=== PATIENT | male | born 1990 | race Caucasian/White ===

== ENCOUNTER 2025-03-11 11:34 | Inpatient (IN) ==
--- NOTE | 2025-03-11 11:49 | Emergency Department Note ---
Impression & Plan Cellulitis, Wound infection, Laceration of right lower leg ED Provider Note CHIEF COMPLAINT: Leg injury, leg swelling, redness, infected laceration repair HISTORY OF PRESENTING ILLNESS: The patient is a 34-year-old male who presents to the emergency department due to a right lower leg infection. The patient was seen 5 days ago at [facility] due to an injury to the right lower leg that required suture repair. The wound is approximately 10 cm on the right abdullahi. He was started on Keflex upon discharge from the ER. He states that 3 days ago he noticed some surrounding redness in the area and was evaluated by his primary care provider who added Bactrim. He has been taking the Keflex and Bactrim as prescribed for the last 3 days and has noticed increased redness, purulent drainage, and felt as if he had a fever last night and chills. He did take his temperature which was 99.8. He describes the area as very painful and that he has noticed swelling. He denies nausea or vomiting, chest pain, shortness of breath, abdominal pain. REVIEW OF SYSTEMS: See HPI for pertinent positives and pertinent negatives. ALLERGIES: NKDA MEDICATIONS: See below PAST MEDICAL HISTORY: See below PHYSICAL EXAM: VITALS: Vitals are noted on the nurse's note and reviewed by myself. Vital signs stable. GENERAL: 34-year-old male, in no acute distress, nondiaphoretic, well-developed well-nourished. SKIN: Capillary refill less than 2 seconds. HEENT: Normocephalic. PERRLA. EOMI. Nares patent. Mucous membranes moist. Neck is supple without nuchal rigidity. HEART: Regular rate and rhythm without murmurs gallops or rubs. LUNGS: CTA BL without wheezes, rales or rhonchi. No retractions or accessory muscle use. MUSCULOSKELETAL: There is a 10 cm laceration repair noted on the right abdullahi. There is surrounding erythema from the midfoot to up below the knee. There is purulent drainage from the wound. Area is warm and tender to touch. Patient has full range of motion of the lower extremity. 2 + dorsal pedis pulse. NEURO: Patient was alert and oriented. No focal neurological deficits. DIFFERENTIAL DIAGNOSIS: Cellulitis, erysipelas, abscess, sepsis, wound dehiscence, among others. ED COURSE AND MEDICAL DECISION MAKING: HISTORY FROM INDEPENDENT HISTORIAN: The patient himself. MEDICATIONS GIVEN: Tylenol 1000 mg IV, vancomycin 2750 mg IV INTERPRETATION OF LABS: I interpreted the labs with full lab results as below in the lab section of this note. Pertinent lab results discussed in the MDM section below. INTERPRETATION OF IMAGING: No images were ordered. ESCALATION OF CARE CONSIDERED: Escalation of care was considered with the patient's presentation with an infected wound that is becoming progressively worse on 2 oral antibiotics. Lab work does not show a systemic infection and the patient was started on IV antibiotics. I discussed with the patient admission for IV antibiotics and observation for the next 24 to 48 hours in which she agrees. The patient was admitted to medicine. [facility] Presented the patient to the provider and that I feel it is of his best interest to receive IV antibiotics and observe the wound for the next couple of days. We discussed that he does not appear to have systemic infection at this time but has failed outpatient treatment. She was wondering if I believed that he had osteomyelitis and which I do not have concerns for at this time. She did discuss potentially ordering images in the inpatient setting in which I agreed to as well. The patient was evaluated and admitted to medicine. MDM SUMMARY: I evaluated the 34-year-old male who presents to the emergency department due to an infected wound on his right lower leg. See HPI and physical exam above. IV access was established and labs were obtained. Tylenol was given for symptom management. Due to the patient's laceration repair being infected and failing two oral antibiotic he was given an IV dose of vancomycin here. A wound culture was obtained and sent to lab for testing. I did discuss with the pharmacist using Dalbavancin IV and sending the patient home and to return for recheck in 48 to 72 hours. After discussing this with the patient he ultimately called his insurance company who stated that they would not cover the IV medication. He politely declines it at this time. I did discuss with him that I feel it is of his best interest to be admitted for observation and IV antibiotics for a day or so. He does agree to this plan. [facility] be seen in detail above. The patient was admitted in stable condition. DIAGNOSIS: Cellulitis, wound infection, laceration of right lower leg The chart was completed utilizing FlowJob voice recognition software. Grammatical errors, random word insertions, pronoun errors, and incomplete sentences are an occasional consequence of this system due to software limitations, ambient noise, and hardware issues. Any formal questions or concerns about the content, text, or information contained within the body of this dictation should be directly addressed to the provider for clarification. Past Med/Surg History Problem List (Updated 03/11/25 @ 19:05 by Nunu Robles PA-C) Wound infection (Acute) Cellulitis (Acute) Laceration of right lower leg (Acute) Cellulitis Medical History Spinal stenosis Spinal stenosis Lumbar spinal stenosis (03/25/14) Internal derangement of knee Knee MCL sprain Knee LCL sprain Patellar dislocation Surgical History Hx of lumbar discectomy Family History Other Deep vein thrombosis Hypertension Social History Smoking Status: Never smoker Hx Alcohol Use: No Hx Substance Use: No Preferred Language: Macedonian Communication Ability: Effective Assistant Facility Manager Required: No Beliefs That Will Affect Care: None Current Living Situation: Spouse Feels Safe at Home: Yes Safety Concerns: Feels Safe At This Time Assistive Devices: None Allergies Allergies Allergy/AdvReac Type Severity Reaction Status Date / Time No Known Allergies Allergy Unknown Unverified 03/11/25 15:26 Home Meds Home Medications Medication Instructions Recorded Confirmed sulfamethoxazole 800 1 tab PO BID 03/11/25 03/11/25 mg-trimethoprim 160 mg tablet Results & Data (ED) Vital Signs Vital Signs - 24 hr 03/11/25 11:41 03/11/25 15:04 Temperature 36.3 C L Temperature Source Temporal Artery Scan Pulse Rate 81 Pulse Rate [Apical] 74 Respiratory Rate 18 18 Blood Pressure 129/69 Blood Pressure [Left Arm] 128/60 Blood Pressure Mean 89 Blood Pressure Mean [Left Arm] 82 Pulse Oximetry 95 100 Oxygen Delivery Method Room Air Room Air Sepsis New/Unexplained Change in Mental Status No Sepsis Action Taken by Nursing No Action Required Laboratory Data 03/11/25 12:17 03/11/25 12:17 Lab Results 07/24/25 Range/Units 12:17 WBC 8.82 (4.8-10.8) K/ul RBC 4.85 (4.70-6.10) M/uL Hgb 13.4 L (14.0-18.0) g/dl Hct 40.9 L (42.0-52.0) % MCV 84.3 (80.0-100.0) fL MCH 27.6 (25.0-34.0) pg MCHC 32.8 (32.0-36.0) g/dL RDW Std Deviation 41.1 (36.4-46.3) fL RDW Coeff of Vaibhav 13.2 (11.5-14.5) % Plt Count 256 (130-400) K/uL MPV 10.1 (9.4-12.4) fL Immature Gran % (Auto) 0.2 % Neut % (Auto) 73.5 % Lymph % (Auto) 13.4 % [place] % (Auto) 8.7 % Eos % (Auto) 3.7 % Baso % (Auto) 0.5 % Neut # (Auto) 6.48 (1.40-6.50) K/uL Lymph # (Auto) 1.18 L (1.20-3.40) K/uL [place] # (Auto) 0.77 H (0.11-0.59) K/uL Eos # (Auto) 0.33 (0.00-0.50) K/uL Baso # (Auto) 0.04 (0.00-0.20) K/uL Immature Gran # (Auto) 0.02 (0.01-0.20) K/uL Sodium 137 (136-145) mmol/L Potassium 4.0 (3.5-5.1) mmol/L Chloride 105 (98-107) mmol/L Carbon Dioxide 26 (21-32) mmol/L Anion Gap 6 (3-11) BUN 12 (6-23) mg/dl Creatinine 0.82 (0.6-1.4) mg/dl Est Cr Clr Drug Dosing 200.8 ml/min eGFR 118.21 BUN/Creatinine Ratio 14.6 (10-20) Glucose 106 H (70-99(Fasting)) mg/dl Lactate 1.2 (0.4-2.0) mmol/L Calcium 8.9 (8.6-10.3) mg/dl Total Bilirubin 1.0 (0.2-1.0) mg/dl AST 20 (13-39) U/L ALT 17 (7-52) U/L Alkaline Phosphatase 66 (34-104) U/L Total Protein 6.9 (6.0-8.3) gm/dl Albumin 3.6 (3.4-5.0) gm/dl Globulin 3.3 (2.5-4.0) gm/dl Albumin/Globulin Ratio 1.1 (0.9-2) Procalcitonin 0.08 (0-0.5) ng/ml Administered Medications Discontinued Medications Cefepime HCl (Cefepime 2,000 Mg/20 Ml Iv Push) Confirm Administered Dose 2,000 mg IV .[employer]-MED ONE Stop: 03/11/25 17:54 Last Admin: 03/11/25 17:58 Dose: Not Given Documented By: MONIQUE Acetaminophen (Ofirmev) 1,000 mg in 100 mls @ 400 mls/hr IV NOW STA Stop: 03/11/25 12:33 Last Infusion: 03/11/25 13:06 Dose: Infused Documented By: Admin: 03/11/25 12:34 Dose: 400 mls/hr Documented By: TOMA Vancomycin HCl 2,750 mg/ (Sodium Chloride) 555 mls @ 200 mls/hr IV NOW ONE Stop: 03/11/25 15:08 Last Infusion: 03/11/25 18:03 Dose: Infused Documented By: Infusion: 03/11/25 14:37 Dose: 0 mls/hr Documented By: Admin: 03/11/25 13:10 Dose: 200 mls/hr Documented By: RAISA Imaging Data Radiologist's Impression: Lower Extremity CT 03/11/25 15:52 Clinical history: Rule out abscess Technique: Axial computed tomography images were obtained of the right lower leg without intravenous contrast. Sagittal and coronal reconstructions were obtained Findings: No fracture is identified. There is mild lateral tilting and lateral subluxation of the patella. There is mild to moderate severity right knee osteoarthritis. There is a small sclerotic lesion in the body of the calcaneus, likely a benign bone island. No other focal osseous lesion is evident. There is no definite sign of osteomyelitis. There is a small dorsal calcaneal spur The visualized musculature appears unremarkable. There is mild diffuse subcutaneous edema. There are multiple small calcifications in the anterior subcutaneous fat. No foreign body is evident Impression: 1. Subcutaneous edema that could be due to cellulitis 2. No definite abscess or osteomyelitis 3. Right knee osteoarthritis 4. Lateral tilting and lateral subluxation of the patella, which may be due to patellar tracking abnormality 5. Small calcaneal spur Electronically signed by Asael Conway 03-11-2025 4:44 PM Venous Doppler Study 03/11/25 15:52 Technique: Venous ultrasound evaluation was performed utilizing grayscale, color Doppler and wave form evaluation. Images were also obtained with and without compression Findings: The right common femoral, superficial femoral, popliteal, and visualized calf veins demonstrate normal anechoic lumens with full compressibility. Normal flow is seen on color Doppler images. Expected waveforms were produced with augmentation maneuvers There is right inguinal adenopathy, the largest a 5.1 x 3 x 1 cm lymph node with a fatty hilum. Impression: 1. No evidence of right leg deep venous thrombosis 2. Right inguinal adenopathy, nonspecific in nature ACT 112: Positive. There are findings on this exam that require communication between the performing entity and the patient following Patient Test Result Information Act ([place] ACT 112) guidelines. Electronically signed by Asael Conway 03-11-2025 4:39 PM Discharge Plan Visit Data Chief Complaint: Laceration/Cut (Non-Suture) Stated Complaint: LEG INJURY, LEG SWELLING, REDNESS, LACERATION ED Provider: [facility] ED Midlevel Provider: Nunu Robles Discharge Problem: Cellulitis, Wound infection, Laceration of right lower leg Patient Disposition: Admitted As Inpatient Condition: Fair Discharge Instructions Interventions: ED Discharge Assessment Last Done: 03/11/25 18:03 Discharge Problem: Cellulitis Qualifiers: Site of cellulitis: extremity Site of cellulitis of extremity: lower extremity Laterality: right Qualified Code(s): L03.115 - Cellulitis of right lower limb Laceration of right lower leg Qualifiers: Encounter type: initial encounter Qualified Code(s): S81.811A - Laceration without foreign body, right lower leg, initial encounter
[2025-03-11] MEDS ORDERED: VANCOMYCIN CONSULT ACTIVE PRN (12:19)
[2025-03-11 12:31] LABS: Hematocrit (blood only) 40.9 % (42.0-52.0); Hemoglobin 13.4 g/dl (14.0-18.0); Immature Granulocytes # (auto) 0.02 K/uL (0.01-0.20); Immature Granulocytes % (auto) 0.2 %; Mean Corpuscular Hemoglobin 27.6 pg (25.0-34.0); Mean Corpuscular Volume 84.3 fL (80.0-100.0); Platelet Count 256 K/uL (130-400); RDW Standard Deviation 41.1 fL (36.4-46.3); Red Blood Count 4.85 M/uL (4.70-6.10); White Blood Count 8.82 K/ul (4.8-10.8)
[2025-03-11] MEDS: ACETAMINOPHEN 1,000 MG/100 ML VIAL IV STA (12:34)
[2025-03-11 12:48] LABS: Anion Gap 6.0 (3-11); Bilirubin,Total 1.0 mg/dl (0.2-1.0); Calcium 8.9 mg/dl (8.6-10.3); Carbon Dioxide 26.0 mmol/L (21-32); Chloride 105.0 mmol/L (98-107); Potassium 4.0 mmol/L (3.5-5.1); Sodium 137.0 mmol/L (136-145)
[2025-03-11 12:54] LABS: Alanine Aminotransferase 17.0 U/L (7-52); Albumin Globulin Ratio 1.1 (0.9-2); Alkaline Phosphatase 66.0 U/L (34-104); Blood Urea Nitrogen 12.0 mg/dl (6-23); Creatinine Clr Calc Pharmacy 200.8 ml/min; Globulin 3.3 gm/dl (2.5-4.0); Glucose 106.0 mg/dl (70-99(Fasting)); Total Protein 6.9 gm/dl (6.0-8.3)
[2025-03-11] MEDS: VANCOMYCIN HCL 2,750 MG in SODIUM CHLORIDE 0.9% 500 ML IV ONE (13:10)
--- NOTE | 2025-03-11 15:32 | History & Physical Report ---
Date of Service March 11, 2025 Assessment & Plan (1) Cellulitis: (2) Laceration of right lower leg: Plan 34 year old male with PMH significant for history of lumbar spine surgery who presented to the ED on 03/11/2025 with an infected leg laceration and is admitted for cellulitis. Cellulitis Laceration of right lower leg Sustained laceration of right lower leg 5 days ago Failed outpatient therapy consisting of keflex x2 days and bactrim x3 days No leukocytosis or fevers Wound culture pending Obtain CT without contrast to rule out abscess Obtain venous doppler to rule out DVT Continue IV vancomycin and add IV cefepime 1L NSS Ortho consult for possible I&D DVT Prophylaxis: SQ Heparin Code Status: FULL CODE - As per discussion at bedside with the patient. PCP: Luna Ames MD Disposition: admit to med surg Patient seen in collaboration with Dr Huang. Please see addendum. I spent a total of 55 minutes coordinating, documenting and providing care for this patient excluding time spent in the performance of separately billed services or time spent by another provider/QHP. Admission and Anticipated Discharge Date Admission Date: 03/11/2025 History of Present Illness Chief Complaint: leg infection Primary Care Provider: Luna Ames MD 34 year old male with PMH significant for history of lumbar spine surgery who presented to the ED on 03/11/2025 with an infected leg laceration. Last Saturday, he had a tractor accident and sustained a deep cut on his right abdullahi. He was seen at [facility] and got ten stitches inside and twenty outside. He received a tetanus shot and was prescribed keflex. He developed swelling, redness, and warmth and presented to his PCP on Saturday who prescribed bactrim. He has been taking bactrim twice a day with no improvement and notes that the redness and swelling has been getting worse. He called his PCP today who advised that he come to the ED. He reports a low grade fever of 99.5 last night but denies chills, chest pain, SOB, abdominal pain, N/V. Notes some diarrhea since starting the bactrim. He has been able to walk but notes discomfort when walking. He has been elevating his leg after work each night. He has been applying neosporin and a dressing for wound care. Allergies Allergy/AdvReac Type Severity Reaction Status Date / Time No Known Allergies Allergy Unknown Unverified 03/11/25 15:26 Home Medications Medication Instructions Recorded Confirmed Type sulfamethoxazole 800 1 tab PO BID 03/11/25 03/11/25 History mg-trimethoprim 160 mg tablet Past Med/Surg History Problem List (Updated 03/11/25 @ 15:59 by JENNY Larose) Laceration of right lower leg Cellulitis Medical History (Updated 03/11/25 @ 15:59 by JENNY Larose) Spinal stenosis Spinal stenosis Lumbar spinal stenosis (03/25/14) Internal derangement of knee Knee MCL sprain Knee LCL sprain Patellar dislocation Surgical History (Updated 03/11/25 @ 15:28 by JENNY Larose) Hx of lumbar discectomy Family History (Updated 03/11/25 @ 16:02 by JENNY Larose) Other Deep vein thrombosis Hypertension Social History (Updated 03/11/25 @ 16:03 by JENNY Larose) Smoking Status: Never smoker Hx Alcohol Use: No Hx Substance Use: No Preferred Language: Niuean Feels Safe at Home: Yes Assistive Devices: None Review of Systems Review of Systems: All systems reviewed & are unremarkable except as noted in HPI & below Physical Exam Physical Exam: General/Psych: WD/WN, sitting up in bed, NAD, conversing easily, euthymic affect Head: normocephalic, atraumatic Eyes: normal inspection, PERRL, conjunctivae pink ENT: external ear and nose normal, oropharynx normal Neck: normal visual inspection, trachea midline Respiratory: normal respiratory effort, lungs clear to auscultation, no wheeze/rales/rhonchi, no accessory muscle use Cardiovascular: regular rate and rhythm, no murmur/rub/gallop, no JVD Extremities: no cyanosis or clubbing, normal peripheral pulses, right lower leg warm and edematous without fluctuance Abdomen/GI: normal bowel sounds, soft, nontender, no hepatosplenomegaly Neurologic/MSK: A+Ox3, motor strength 5/5, moves all extremities Skin: no rashes, normal color, warm and dry, right abdullahi laceration with sutures and scant amount of serous drainage with surrounding erythema Results & Data Results & Data Vital Signs (Past 12 Hours) Vital Signs Temp Pulse Pulse Resp BP BP Pulse Ox 03/11/25 15:04 74 18 128/60 100 03/11/25 11:41 36.3 C L 81 18 129/69 95 O2 Del Method 03/11/25 15:04 Room Air 03/11/25 11:41 Room Air Laboratory Results Short CBC 03/11/25 Range/Units 12:17 WBC 8.82 (4.8-10.8) K/ul Hgb 13.4 L (14.0-18.0) g/dl Hct 40.9 L (42.0-52.0) % Plt Count 256 (130-400) K/uL BMP 03/11/25 12:17 Sodium 137 Potassium 4.0 Chloride 105 Carbon Dioxide 26 BUN 12 Creatinine 0.82 Glucose 106 H Calcium 8.9 Liver Function 03/11/25 Range/Units 12:17 Total Bilirubin 1.0 (0.2-1.0) mg/dl AST 20 (13-39) U/L ALT 17 (7-52) U/L Alkaline Phosphatase 66 (34-104) U/L Albumin 3.6 (3.4-5.0) gm/dl I have independently reviewed and interpreted patient's admitting labs including CBC, CMP, lactate, procalcitonin Code Status & VTE Plan Code Status Full Code
--- NOTE | 2025-03-11 15:42 | Communication Note ---
Date of Service: March 11, 2025 Attending Addendum: Case reviewed with the advanced practitioner. I have personally performed a history and physical examination on the patient. I have reviewed the advanced practitioner's documentation on the date of service referenced in note, and I agree with, and take responsibility for the plan of care. please refer to her notes for full details patient seen and examined, records reviewed by myself as well on exam, patient seen resting in bed, sitting up worsening R lower leg pain since injury from getting on his tractor last Saturday, sutured at outside hospital, no improvement with Cephalexin and Bactrim states he has moderate R lower leg pain, worse with movement temp was 99.8 yesterday, no chills, nausea/vomiting no other symptoms VS noted and reviewed oriented x 3, not in distress, speaks in sentences with no effort nor accessory muscle use normal rate, regular rhythm, no murmurs clear breath sounds bilaterally non distended, soft, nontender R lower leg: (+) significant edema, sutured laceration- anterior abdullahi, wound well opposed, scant yellow drainage, surrounding significant erythema, moderate warmth and tenderness, extending beyond demarcation line small area of fluctuance above the wound L lower leg: essentially normal no neuro deficits all labs, imaging noted and reviewed ASSESSMENT AND PLAN> INFECTED RIGHT LOWER LEG SUTURED LACERATION, CELLULITIS r/o ABSCESS worsening R lower leg swelling, erythema, pain after laceration sutured 5 days ago, and taking Cephalexin, Bactrim wound culture: pending blood culture: pending CT R lower leg without contrast (patient on IV Vanco) IV Vanco + Cefe IV fluids General Surgery consult for evaluation of possible I&D as per patient, he has received Tetanus Vaccine when the wound was sutured 5 days ago other diagnoses and plan of care as per advanced practitioner's notes I spent a total of 35 minutes coordinating, documenting, and providing care for this patient, excluding time spent in the performance of separately billed services or time spent by another provider/QHP. Laron Huang MD
--- NOTE | 2025-03-11 16:40 | Ultrasound Report ---
Technique: Venous ultrasound evaluation was performed utilizing grayscale, color Doppler and wave form evaluation. Images were also obtained with and without compression Findings: The right common femoral, superficial femoral, popliteal, and visualized calf veins demonstrate normal anechoic lumens with full compressibility. Normal flow is seen on color Doppler images. Expected waveforms were produced with augmentation maneuvers There is right inguinal adenopathy, the largest a 5.1 x 3 x 1 cm lymph node with a fatty hilum. Impression: 1. No evidence of right leg deep venous thrombosis 2. Right inguinal adenopathy, nonspecific in nature ACT 112: Positive. There are findings on this exam that require communication between the performing entity and the patient following Patient Test Result Information Act ([place] ACT 112) guidelines. Electronically signed by Asael Conway 03-11-2025 4:39 PM
--- NOTE | 2025-03-11 16:45 | CT Scan Report ---
Clinical history: Rule out abscess Technique: Axial computed tomography images were obtained of the right lower leg without intravenous contrast. Sagittal and coronal reconstructions were obtained Findings: No fracture is identified. There is mild lateral tilting and lateral subluxation of the patella. There is mild to moderate severity right knee osteoarthritis. There is a small sclerotic lesion in the body of the calcaneus, likely a benign bone island. No other focal osseous lesion is evident. There is no definite sign of osteomyelitis. There is a small dorsal calcaneal spur The visualized musculature appears unremarkable. There is mild diffuse subcutaneous edema. There are multiple small calcifications in the anterior subcutaneous fat. No foreign body is evident Impression: 1. Subcutaneous edema that could be due to cellulitis 2. No definite abscess or osteomyelitis 3. Right knee osteoarthritis 4. Lateral tilting and lateral subluxation of the patella, which may be due to patellar tracking abnormality 5. Small calcaneal spur Electronically signed by Asael Conway 03-11-2025 4:44 PM
[2025-03-11] MEDS: CEFEPIME 2,000 MG/20 ML IV PUSH IV ONE (17:58)
[2025-03-11] MEDS ORDERED: ADVANCED PROBIOTIC 625 MG CAPSULE PO SCH (18:19)
[2025-03-11] MEDS ORDERED: ONDANSETRON INJ 2 MG/ML 2 ML VIAL IV PRN (18:19)
[2025-03-11] MEDS: SODIUM CHLORIDE 0.9% 1,000 ML IV SCH (19:32)
[2025-03-11] MEDS: CEFEPIME 2000MG 2,000 MG/20 ML SYR IV SCH (19:32)
[2025-03-11] MEDS: VANCOMYCIN HCL 1,750 MG in SODIUM CHLORIDE 0.9% 500 ML IV SCH (19:33)
[2025-03-11] MEDS: ADVANCED PROBIOTIC 625 MG CAPSULE PO SCH (19:33)
[2025-03-11] MEDS: HEPARIN SOD 5,000 UNIT/0.5 ML VIAL SQ SCH (20:49)
[2025-03-12] MEDS: ACETAMINOPHEN 325 MG TAB PO PRN (05:32)
[2025-03-12 07:21] LABS: Hematocrit (blood only) 37.3 % (42.0-52.0); Hemoglobin 12.2 g/dl (14.0-18.0); Mean Corpuscular Hemoglobin 27.6 pg (25.0-34.0); Mean Corpuscular Volume 84.4 fL (80.0-100.0); Platelet Count 239 K/uL (130-400); RDW Standard Deviation 41.3 fL (36.4-46.3); Red Blood Count 4.42 M/uL (4.70-6.10); White Blood Count 7.85 K/ul (4.8-10.8)
[2025-03-12 07:42] LABS: Anion Gap 6.0 (3-11); Blood Urea Nitrogen 14.0 mg/dl (6-23); Calcium 8.3 mg/dl (8.6-10.3); Carbon Dioxide 24.0 mmol/L (21-32); Chloride 109.0 mmol/L (98-107); Creatinine Clr Calc Pharmacy 215.0 ml/min; Glucose 103.0 mg/dl (70-99(Fasting)); Potassium 4.4 mmol/L (3.5-5.1); Sodium 139.0 mmol/L (136-145)
[2025-03-12 08:55] LABS: Hemoglobin A1C 5.3 % (4.5-5.6)
--- NOTE | 2025-03-12 09:23 | Pharmacy Report ---
Pharmacy PK ABX Note - Date of Service March 12, 2025 - Assessment and Plan Assessment 34 year old M receiving empiric vancomycin and cefepime for treatment of RLE cellulitis. Patient sustained laceration to right lower leg ~5 days ago. Had been receiving 2 days of cephalexin and 3 days of Bactrim prior to admission. CT shows subcutaneous edema that could represent cellulitis, but no definite abscess or osteomyelitis. Pertinent microbiologic data includes: right leg and blood cultures x 2 all currently pending. MRSA nasal swab also pending. Day # 1 of broadened antimicrobial therapy. Plan Vancomycin * Loading dose: 2750 mg IV x 1 * Maintenance dose: 1750 mg IV every 8 hours * Regimen is predicted to achieve target AUC/MYRA of 400-600 mg/L.hr * Trough level ordered for: 03/13/25 Pharmacy will continue to follow and will adjust dose/frequency as necessary. Thank you. Pharmacy has transitioned to AUC monitoring for vancomycin. AUC/MYRA is the preferred PK/PD target and is associated with decreased risk of nephrotoxicity compared to traditional trough targets.
--- NOTE | 2025-03-12 10:50 | Orthopedic Consultation ---
Date of Service March 12, 2025 Assessment & Plan (1) Laceration of right lower leg: * Case/imaging reviewed and discussed with Dr Daniel * Exam and imaging consistent with superficial cellulitis, no evidence of deep abscess, soft tissue gas, or other fluid collection * Recommend continued conservative care with antibiotic treatment * No further procedure or I&D indicated at this time * Disposition: TBD * Daily treatment: Physical Therapy/ Occupational Therapy per protocol * Weight bearing status: WBAT RLE * Pain control * Remainder care per primary team * Will continue to follow History of Present Illness Reason for Consultation: . Patient is a 34y/o male with right lower extremity laceration. PMH including lumbar stenosis. Presents to hospital with concern of right lower leg laceration infection. Per patient he was climbing off his tractor approximately 1 week ago when he slipped and cut his leg on metal. He was seen at outside ER where wound was washed out and sutured closed. Was initially started antibiotics, however due to increasing redness he saw his PCP earlier in the week who prescribed Bactrim, despite this he has had persistent redness of the abdullahi and mild fluid drainage from the wound site. Current workup including WBC 7.8, CT right lower leg demonstrating cellulitis but no deep soft tissue gas or abscess/fluid collection. IV antibiotics initiated, admitted to hospitalist team.. Orthopedics consulted for management recommendations. At time of exam patient lying comfortably in bed, no acute distress. Endorses mild pain of the right abdullahi around the wound site, moderate swelling of the lower leg. Scant serous drainage from the wound periodically, denies any purulent fluid. Denies tingling numbness across the foot/lower leg. Requesting Physician: . Attending Physician: Rojelio Avendano MD . Allergies Allergy/AdvReac Type Severity Reaction Status Date / Time No Known Allergies Allergy Unknown Unverified 03/11/25 15:26 Home Medications Medication Instructions Recorded Confirmed Type sulfamethoxazole 800 1 tab PO BID 03/11/25 03/11/25 History mg-trimethoprim 160 mg tablet Past Med/Surg History Problem List (Updated 03/11/25 @ 19:05 by Nunu Robles PA-C) Wound infection (Acute) Cellulitis (Acute) Laceration of right lower leg (Acute) Cellulitis Medical History Spinal stenosis Spinal stenosis Lumbar spinal stenosis (03/25/14) Internal derangement of knee Knee MCL sprain Knee LCL sprain Patellar dislocation Surgical History Hx of lumbar discectomy Family History Other Deep vein thrombosis Hypertension Social History Smoking Status: Never smoker Hx Alcohol Use: No Hx Substance Use: No Preferred Language: Hebrew Communication Ability: Effective 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 Physical Exam . * General: Alert and oriented, no acute distress * Constitutional: well-developed, well-nourished. * Respiratory: Normal respiratory effort, no distress * Gastrointestinal: No tenderness to palpation, no rigidity or guarding. * Skin: No rash or lesion. * Neurologic: Grossly normal * Musculoskeletal: Right lower extremity with 5 cm laceration to the distal anterior abdullahi, surrounding erythema/cellulitis, soft tissue induration. Scant serous drainage from middle incision, no expressible fluid or purulence noted. Mild TTP around the area of the laceration, otherwise no specific tenderness of the posterior calf, proximal abdullahi, ankle, foot. AROM knee, ankle/foot intact without pain. Sensation intact plantar/dorsal foot. Brisk capillary fill. Results & Data Results & Data Laboratory Results . Diagnostic Findings . PG Care Time/CCT Total # of Minutes Spent Total Time Spent with Patient: Total time spent is greater than 50% in coordination of care (as documented) at patient's floor/unit and/or counseling patient: [place] [address] IN/OBS CONSULT LVL 3,45M Patient Type New History Problem Focused Exam Problem Focused Medical Decision Making Low Complexity Diagnoses Laceration of right lower leg S81.811A Encounter type: initial encounter (1) Laceration of right lower leg Encounter type: initial encounter Qualified Code(s): S81.811A - Laceration without foreign body, right lower leg, initial encounter
--- NOTE | 2025-03-12 15:42 | Hospitalist Progress Note ---
Date of Service March 12, 2025 Assessment & Plan (1) Cellulitis: (2) Laceration of right lower leg: Plan 34 year old male with PMH significant for history of lumbar spine surgery who presented to the ED on 03/11/2025 with an infected leg laceration and is admitted for cellulitis. Right lower extremity cellulitis Laceration of right lower leg Sustained laceration of right lower leg 5 days ago requiring sutures Failed outpatient therapy consisting of keflex x2 days and bactrim x3 days --Leg CT:Subcutaneous edema that could be due to cellulitis. No definite abscess or osteomyelitis. Right knee osteoarthritis. Lateral tilting and lateral subluxation of the patella, which may be due to patellar tracking abnormality. Small calcaneal spur --Venous Doppler:No evidence of right leg deep venous thrombosis. Right inguinal adenopathy, nonspecific in nature -- Blood cultures negative to date --Wound culture pending -- Empirically on vancomycin, cefepime --Appreciate orthopedics input: No indication for intervention currently per O rtho --Right lower extremity weightbearing as tolerated --Received IV fluids --Continue wound care Morbid obesity BMI 55 Recommend lifestyle changes DVT Px: SQ Heparin CODE STATUS Full code Disposition Expect to discharge home in stable Admission and Anticipated Discharge Date Admission Date: March 11, 2025 Subjective Patient is seen and examined at bedside Right leg edema, erythema, pain slowly improving Discussed with patient's family at bedside No other complaints today Denies any chest pain, dyspnea, nausea, vomiting, abdominal pain Review of Systems Review of Systems: All systems reviewed & are unremarkable except as noted in Subjective Physical Exam Physical Exam: Physical Exam: Vitals signs as noted above General Appearance:Morbid Obesity, no apparent distress Head: normocephalic, Atraumatic Eyes: normal inspection, EOMI Neck: supple, Trachea midline Respiratory/Chest: Normal breath sounds, CTA, No accessory muscle use Cardiovascular: S1, S2, No murmur Abdomen/GI:Soft, Non tender, Bowel sounds present Extremities/Musculoskeletal:normal inspection, R leg + laceration with sutures, erythema, edematous, mild tender Neurologic/Psych:AAOX3, grossly no focal neurological deficits Skin: normal color, warm Results & Data Results & Data Vital Signs (Past 12 Hours) Vital Signs Temp Pulse Pulse Resp BP Pulse Ox O2 Del Method 03/12/25 14:38 36.8 C 73 16 132/75 97 Room Air 03/12/25 11:26 36.8 C 75 20 133/77 97 Room Air 03/12/25 07:14 36.7 C 71 18 158/77 H 98 Room Air Laboratory Results Short CBC 03/12/25 Range/Units 06:09 WBC 7.85 (4.8-10.8) K/ul Hgb 12.2 L (14.0-18.0) g/dl Hct 37.3 L (42.0-52.0) % Plt Count 239 (130-400) K/uL BMP 03/12/25 06:09 Sodium 139 Potassium 4.4 Chloride 109 H Carbon Dioxide 24 BUN 14 Creatinine 0.80 Glucose 103 H Calcium 8.3 L (2) Laceration of right lower leg Encounter type: initial encounter Qualified Code(s): S81.811A - Laceration without foreign body, right lower leg, initial encounter
[2025-03-13 06:02] LABS: Hematocrit (blood only) 37.6 % (42.0-52.0); Hemoglobin 12.3 g/dl (14.0-18.0); Mean Corpuscular Hemoglobin 27.8 pg (25.0-34.0); Mean Corpuscular Volume 84.9 fL (80.0-100.0); Platelet Count 251 K/uL (130-400); RDW Standard Deviation 41.2 fL (36.4-46.3); Red Blood Count 4.43 M/uL (4.70-6.10); White Blood Count 6.79 K/ul (4.8-10.8)
[2025-03-13 06:21] LABS: Anion Gap 4.0 (3-11); Blood Urea Nitrogen 12.0 mg/dl (6-23); Calcium 8.5 mg/dl (8.6-10.3); Carbon Dioxide 29.0 mmol/L (21-32); Chloride 106.0 mmol/L (98-107); Creatinine Clr Calc Pharmacy 193.3 ml/min; Glucose 107.0 mg/dl (70-99(Fasting)); Magnesium 2.0 mg/dl (1.7-2.4); Potassium 4.3 mmol/L (3.5-5.1); Sodium 139.0 mmol/L (136-145)
--- NOTE | 2025-03-13 13:01 | Pharmacy Report ---
Pharmacy PK ABX Note - Date of Service March 13, 2025 - Assessment and Plan Assessment * 34 year old M receiving empiric vancomycin and cefepime for treatment of RLE cellulitis. Patient sustained laceration to right lower leg ~5 days ago. * Had been receiving 2 days of cephalexin and 3 days of Bactrim prior to admission. * CT shows subcutaneous edema that could represent cellulitis, but no definite abscess or osteomyelitis. * Pertinent microbiologic data includes: right leg and blood cultures x 2 all no growth to date. MRSA nasal swab negative. * Day # 2 of broadened antimicrobial therapy. Plan Vancomycin * Target AUC/MYRA of 400-600 mg/L.hr * Level of 20.5 mcg/mL today associated with a supratherapeutic AUC * Decrease vancomycin to 2000 mg IV every 12 hours * Trough level ordered for: 03/15/25 w AM labs Pharmacy will continue to follow and will adjust dose/frequency as necessary. Thank you. Pharmacy has transitioned to AUC monitoring for vancomycin. AUC/MYRA is the preferred PK/PD target and is associated with decreased risk of nephrotoxicity compared to traditional trough targets.
--- NOTE | 2025-03-13 14:28 | Hospitalist Progress Note ---
Date of Service March 13, 2025 Assessment & Plan (1) Cellulitis: (2) Laceration of right lower leg: Plan 34 year old male with PMH significant for history of lumbar spine surgery who presented to the ED on 03/11/2025 with an infected leg laceration and is admitted for cellulitis. Right lower extremity cellulitis Laceration of right lower leg Sustained laceration of right lower leg 5 days ago requiring sutures Failed outpatient therapy consisting of keflex x2 days and bactrim x3 days --Leg CT:Subcutaneous edema that could be due to cellulitis. No definite abscess or osteomyelitis. Right knee osteoarthritis. Lateral tilting and lateral subluxation of the patella, which may be due to patellar tracking abnormality. Small calcaneal spur --Venous Doppler:No evidence of right leg deep venous thrombosis. Right inguinal adenopathy, nonspecific in nature -- Blood cultures negative to date --Wound culture pending -- Empirically on vancomycin, cefepime --Appreciate orthopedics input: No indication for intervention currently per O rtho --Right lower extremity weightbearing as tolerated --Received IV fluids --Continue wound care --Slowly improving, continue current management Morbid obesity BMI 55 Recommend lifestyle changes DVT Px: SQ Heparin CODE STATUS Full code Disposition Expect to discharge home in stable Admission and Anticipated Discharge Date Admission Date: March 11, 2025 Subjective Patient is seen and examined at bedside Right leg edema, erythema improving States having less pain with ambulation, activity Denies any chest pain, dyspnea, nausea, vomiting, abdominal pain Cultures so far negative Review of Systems 2 Review of Systems: All systems reviewed & are unremarkable except as noted in Subjective Physical Exam Physical Exam: Physical Exam: Vitals signs as noted above General Appearance:Morbid Obesity, no apparent distress Head: normocephalic, Atraumatic Eyes: normal inspection, EOMI Neck: supple, Trachea midline Respiratory/Chest: Normal breath sounds, CTA, No accessory muscle use Cardiovascular: S1, S2, No murmur Abdomen/GI:Soft, Non tender, Bowel sounds present Extremities/Musculoskeletal:normal inspection, R leg + laceration with sutures, erythema, edematous, mild tender Neurologic/Psych:AAOX3, grossly no focal neurological deficits Skin: normal color, warm Results & Data Results & Data Vital Signs (Past 12 Hours) Vital Signs Temp Pulse Resp BP Pulse Ox O2 Del Method 03/13/25 07:40 37.0 C 81 18 145/71 H 98 Room Air Laboratory Results Short CBC 03/13/25 Range/Units 05:24 WBC 6.79 (4.8-10.8) K/ul Hgb 12.3 L (14.0-18.0) g/dl Hct 37.6 L (42.0-52.0) % Plt Count 251 (130-400) K/uL BMP 03/13/25 05:24 Sodium 139 Potassium 4.3 Chloride 106 Carbon Dioxide 29 BUN 12 Creatinine 0.89 Glucose 107 H Calcium 8.5 L (2) Laceration of right lower leg Encounter type: initial encounter Qualified Code(s): S81.811A - Laceration without foreign body, right lower leg, initial encounter
[2025-03-13] MEDS: VANCOMYCIN HCL 2,000 MG in SODIUM CHLORIDE 0.9% 500 ML IV SCH (19:54)
--- NOTE | 2025-03-14 15:00 | Hospitalist Progress Note ---
Date of Service March 14, 2025 Assessment & Plan (1) Cellulitis: (2) Laceration of right lower leg: Plan 34 year old male with PMH significant for history of lumbar spine surgery who presented to the ED on 03/11/2025 with an infected leg laceration and is admitted for cellulitis. Right lower extremity cellulitis Laceration of right lower leg Sustained laceration of right lower leg 5 days ago requiring sutures Failed outpatient therapy consisting of keflex x2 days and bactrim x3 days --Leg CT:Subcutaneous edema that could be due to cellulitis. No definite abscess or osteomyelitis. Right knee osteoarthritis. Lateral tilting and lateral subluxation of the patella, which may be due to patellar tracking abnormality. Small calcaneal spur --Venous Doppler:No evidence of right leg deep venous thrombosis. Right inguinal adenopathy, nonspecific in nature -- Blood cultures negative to date --Wound culture negative to date -- Empirically on vancomycin, cefepime --Appreciate orthopedics input: No indication for intervention currently per Ortho --Right lower extremity weightbearing as tolerated --Received IV fluids --Continue wound care -- Will transition to oral antibiotics in 1 to 2 days Morbid obesity BMI 55 Recommend lifestyle changes DVT Px: SQ Heparin CODE STATUS Full code Disposition Expect to discharge home in stable Admission and Anticipated Discharge Date Admission Date: March 11, 2025 Subjective Patient is seen and examined at bedside No new complaints Leg erythema, edema continues to improve Denies any leg pain with activity Also denies any chest pain, dyspnea, nausea, vomiting, abdominal pain Review of Systems Review of Systems: All systems reviewed & are unremarkable except as noted in Subjective Physical Exam Physical Exam: Physical Exam: Vitals signs as noted above General Appearance:Morbid Obesity, no apparent distress Head: normocephalic, Atraumatic Eyes: normal inspection, EOMI Neck: supple, Trachea midline Respiratory/Chest: Normal breath sounds, CTA, No accessory muscle use Cardiovascular: S1, S2, No murmur Abdomen/GI:Soft, Non tender, Bowel sounds present Extremities/Musculoskeletal:normal inspection, R leg + laceration with sutures, erythema, edematous, mild tender Neurologic/Psych:AAOX3, grossly no focal neurological deficits Skin: normal color, warm Results & Data Results & Data Vital Signs (Past 12 Hours) Vital Signs Temp Pulse Resp BP Pulse Ox O2 Del Method 03/14/25 07:40 37.0 C 56 L 18 137/70 94 Room Air (2) Laceration of right lower leg Encounter type: initial encounter Qualified Code(s): S81.811A - Laceration without foreign body, right lower leg, initial encounter
[2025-03-15 05:39] LABS: Hematocrit (blood only) 37.9 % (42.0-52.0); Hemoglobin 12.5 g/dl (14.0-18.0); Mean Corpuscular Hemoglobin 28.0 pg (25.0-34.0); Mean Corpuscular Volume 85.0 fL (80.0-100.0); Platelet Count 270 K/uL (130-400); RDW Standard Deviation 39.6 fL (36.4-46.3); Red Blood Count 4.46 M/uL (4.70-6.10); White Blood Count 7.87 K/ul (4.8-10.8)
[2025-03-15 05:55] LABS: Anion Gap 5.0 (3-11); Blood Urea Nitrogen 15.0 mg/dl (6-23); Calcium 8.6 mg/dl (8.6-10.3); Carbon Dioxide 27.0 mmol/L (21-32); Chloride 105.0 mmol/L (98-107); Creatinine Clr Calc Pharmacy 217.8 ml/min; Glucose 105.0 mg/dl (70-99(Fasting)); Potassium 4.1 mmol/L (3.5-5.1); Sodium 137.0 mmol/L (136-145)
[2025-03-15] MEDS: VANCOMYCIN LEVEL ONE (08:09)
[2025-03-15] MEDS: OPTIRAY 320 100ml IV ONE (10:50)
[2025-03-15] MEDS: SODIUM CHLORIDE 0.9% 500 ML IV ONE (11:33)
--- NOTE | 2025-03-15 13:38 | CT Scan Report ---
CT SCAN OF THE RIGHT TIBIA AND FIBULA WITH IV CONTRAST CLINICAL HISTORY: Cellulitis. COMPARISON STUDY: CT scan of the right tibia and fibula dated 03/11/2025. TECHNIQUE: CT scan of the right tibia and fibula is performed from the knee to the ankle following th e IV administration of 94 cc of Optiray 320. Images are reviewed in the axial, sagittal, and coronal planes. IV contrast was administered without complication. A dose lowering technique was utilized adh ering to the principles of ALARA. CT DOSE: 1295.81 mGy.cm FINDINGS: The skeletal structures are well mineralized. There is no evidence of right tibial or fibul ar fracture. No bony erosion or periostitis is seen. The knee and ankle joints are grossly maintained . Mild arthritic change is seen in the knee. A bone island is incidentally noted in the calcaneus. An os trigonum is incidentally noted. There is a dorsal heel spur. Subcutaneous soft tissue edema and f luid is noted throughout the right leg. No organized fluid collection is seen to suggest abscess. No soft tissue gas is identified. There is mild generalized atrophy of the regional musculature. Phlebol iths are noted anteriorly. The Achilles tendon is intact as visualized by CT. IMPRESSION: 1. No acute bony abnormality is seen involving the right tibia or fibula. 2. Soft tissue edema throughout the right lower extremity is consistent with the reported history of cellulitis. 3. No organized/drainable fluid collection is seen to indicate abscess. ACT 112: Negative or not required by law. Electronically signed by: Ang Briceño M.D. 03/15/2025 1:37 PM
--- NOTE | 2025-03-15 14:48 | Hospitalist Progress Note ---
Date of Service March 15, 2025 Assessment & Plan (1) Cellulitis: (2) Laceration of right lower leg: Plan 34 year old male with PMH significant for history of lumbar spine surgery who presented to the ED on 03/11/2025 with an infected leg laceration and is admitted for cellulitis. Right lower extremity cellulitis Laceration of right lower leg Sustained laceration of right lower leg 5 days ago requiring sutures Failed outpatient therapy consisting of keflex x2 days and bactrim x3 days --Leg CT:Subcutaneous edema that could be due to cellulitis. No definite abscess or osteomyelitis. Right knee osteoarthritis. Lateral tilting and lateral subluxation of the patella, which may be due to patellar tracking abnormality. Small calcaneal spur --Venous Doppler:No evidence of right leg deep venous thrombosis. Right inguinal adenopathy, nonspecific in nature -- Blood cultures negative to date --Wound culture negative to date -- Empirically on vancomycin, cefepime>> Vanco, Zosyn --Appreciate orthopedics input: No indication for intervention currently per Ortho --Right lower extremity weightbearing as tolerated --Received IV fluids --Continue wound care -- Given no significant improvement, broadened antibiotics --Repeat imaging showed no abscess Morbid obesity BMI 55 Recommend lifestyle changes DVT Px: SQ Heparin CODE STATUS Full code Disposition Expect to discharge home in stable Admission and Anticipated Discharge Date Admission Date: March 12, 2025 Subjective Patient is seen and examined at bedside No new complaints Updated patient's family over the phone Persistent leg erythema Leg edema, pain slowly improving Denies any chest pain, dyspnea, nausea, vomiting, abdominal pain Review of Systems Review of Systems: All systems reviewed & are unremarkable except as noted in Subjective Physical Exam Physical Exam: Physical Exam: Vitals signs as noted above General Appearance:Morbid Obesity, no apparent distress Head: normocephalic, Atraumatic Eyes: normal inspection, EOMI Neck: supple, Trachea midline Respiratory/Chest: Normal breath sounds, CTA, No accessory muscle use Cardiovascular: S1, S2, No murmur Abdomen/GI:Soft, Non tender, Bowel sounds present Extremities/Musculoskeletal:normal inspection, R leg + laceration with sutures, erythema, edematous, mild tender Neurologic/Psych:AAOX3, grossly no focal neurological deficits Skin: normal color, warm Results & Data Results & Data Vital Signs (Past 12 Hours) Vital Signs Temp Pulse Pulse Resp BP Pulse Ox O2 Del Method 03/15/25 11:59 36.6 C 76 18 130/69 96 Room Air 03/15/25 07:10 36.6 C 67 18 120/70 95 Room Air Laboratory Results Short CBC 03/15/25 Range/Units 04:48 WBC 7.87 (4.8-10.8) K/ul Hgb 12.5 L (14.0-18.0) g/dl Hct 37.9 L (42.0-52.0) % Plt Count 270 (130-400) K/uL BMP 03/15/25 04:48 Sodium 137 Potassium 4.1 Chloride 105 Carbon Dioxide 27 BUN 15 Creatinine 0.79 Glucose 105 H Calcium 8.6 (2) Laceration of right lower leg Encounter type: initial encounter Qualified Code(s): S81.811A - Laceration without foreign body, right lower leg, initial encounter
--- NOTE | 2025-03-15 14:54 | Pharmacy Report ---
Pharmacy PK ABX Note - Date of Service March 15, 2025 - Assessment and Plan Assessment 03/15 * Given no significant improvement, cefepime broadened to Zosyn today. * Day # 5 antibiotics. 03/12 * 34 year old M receiving empiric vancomycin and cefepime for treatment of RLE cellulitis. Patient sustained laceration to right lower leg ~5 days ago. * Had been receiving 2 days of cephalexin and 3 days of Bactrim prior to admission. * CT shows subcutaneous edema that could represent cellulitis, but no definite abscess or osteomyelitis. * Pertinent microbiologic data includes: right leg and blood cultures x 2 all no growth to date. MRSA nasal swab negative. * Day # 2 of broadened antimicrobial therapy. Plan Vancomycin * Target AUC/MYRA of 400-600 mg/L.hr * Level of 17.7 mcg/mL today associated with therapeutic AUC * Continue vancomycin 2000 mg IV every 12 hours * Level to be drawn if therapy continues > 48 more hours Zosyn 4.5g IV Q8H Pharmacy will continue to follow and will adjust dose/frequency as necessary. Thank you. Pharmacy has transitioned to AUC monitoring for vancomycin. AUC/MYRA is the preferred PK/PD target and is associated with decreased risk of nephrotoxicity compared to traditional trough targets.
[2025-03-15] MEDS: PIPERACILLIN/TAZOBACTAM 4.5 GM/100 ML BAG IV SCH (15:07)
[2025-03-16 08:18] LABS: Hematocrit (blood only) 37.0 % (42.0-52.0); Hemoglobin 12.3 g/dl (14.0-18.0); Mean Corpuscular Hemoglobin 28.2 pg (25.0-34.0); Mean Corpuscular Volume 84.9 fL (80.0-100.0); Platelet Count 280 K/uL (130-400); RDW Standard Deviation 40.1 fL (36.4-46.3); Red Blood Count 4.36 M/uL (4.70-6.10); White Blood Count 7.19 K/ul (4.8-10.8)
[2025-03-16 09:27] LABS: Anion Gap 6.0 (3-11); Calcium 8.7 mg/dl (8.6-10.3); Carbon Dioxide 28.0 mmol/L (21-32); Chloride 106.0 mmol/L (98-107); Potassium 3.9 mmol/L (3.5-5.1); Sodium 140.0 mmol/L (136-145)
[2025-03-16 09:33] LABS: Blood Urea Nitrogen 15.0 mg/dl (6-23); Creatinine Clr Calc Pharmacy 207.3 ml/min; Glucose 95.0 mg/dl (70-99(Fasting))
[2025-03-16] MEDS: FUROSEMIDE 40 MG/4 ML VIAL IV ONE (12:15)
--- NOTE | 2025-03-16 13:08 | Hospitalist Progress Note ---
Date of Service March 16, 2025 Assessment & Plan (1) Cellulitis: Plan: 34 year old male with PMH significant for history of lumbar spine surgery who presented to the ED on 03/11/2025 with an infected leg laceration and is admitted for cellulitis. Right lower extremity cellulitis Sustained laceration of right lower leg 5 days ago requiring sutures Failed outpatient therapy consisting of keflex x2 days and bactrim x3 days --Leg CT:Subcutaneous edema that could be due to cellulitis. No definite abscess or osteomyelitis. Right knee osteoarthritis. Lateral tilting and lateral subluxation of the patella, which may be due to patellar tracking abnormality. Small calcaneal spur --Venous Doppler:No evidence of right leg deep venous thrombosis. Right inguinal adenopathy, nonspecific in nature -- Blood cultures negative to date --Wound culture negative to date -- Empirically on vancomycin, cefepime>> Vanco, Zosyn --Appreciate orthopedics input: No indication for intervention currently per Ortho --Right lower extremity weightbearing as tolerated --Received IV fluids --Continue wound care clinically little better with decreasing redness and minimal to no drainage from the suture area Advised to keep the right lower extremity elevated Awaiting wound care nurse recommendation Will give a small dose of Lasix for more diuresis Likely to discharge tomorrow on oral Augmentin (2) Laceration of right lower leg: Plan Other significant medical conditions are as below As aboveMorbid obesity BMI 55 Recommend lifestyle changes DVT Px: SQ Heparin CODE STATUS Full code Disposition Expect to discharge home in stable Admission and Anticipated Discharge Date Admission Date: March 12, 2025 Subjective 03/16/2025 The patient was seen and examined in medical floor He has been feeling much better today His right leg is less swollen and the redness has improved Denies any fever and chills Review of Systems Review of Systems: All systems reviewed and are unremarkable except as noted below Physical Exam Physical Exam: Lying in bed without any acute distress Constitutional: well developed, well nourished and + obese; not ill appearing Eyes: PERRL, conjunctivae normal, anicteric sclerae ENMT: external ear and nose normal, oropharynx normal Neck: trachea midline, no thyromegaly Respiratory: no respiratory distress Auscultation: lungs clear to auscultation bilaterally Cardiovascular: Rate/Rhythm: regular rate and regular rhythm; not tachycardic Heart Sounds: normal S1 and normal S2; no murmur Extremities: + edema ( t race edema bilaterally more on the right than the left) Gastrointestinal (Abdomen): Inspection/Auscultation: normal bowel sounds; abdomen not distended Percussion/Palpation: abdomen soft; abdomen nontender Musculoskeletal: no acute arthritis involving any of the joint Skin: Right leg is swollen with redness involving the site below knee and the laceration with stitches seems to be stable with minimal drainage at 1 point Neurologic: normal touch/pain/proprioception and moves all extremities; no focal motor deficits Psychiatric: A+Ox3, euthymic affect Lymphatic: no cervical or axillary lymphadenopathy Results & Data Results & Data Vital Signs (Past 12 Hours) Vital Signs Temp Pulse Resp BP Pulse Ox O2 Del Method 03/16/25 07:43 36.6 C 85 18 106/62 95 Room Air Laboratory Results Short CBC 03/16/25 Range/Units 07:04 WBC 7.19 (4.8-10.8) K/ul Hgb 12.3 L (14.0-18.0) g/dl Hct 37.0 L (42.0-52.0) % Plt Count 280 (130-400) K/uL BMP 03/16/25 07:04 Sodium 140 Potassium 3.9 Chloride 106 Carbon Dioxide 28 BUN 15 Creatinine 0.83 Glucose 95 Calcium 8.7 Medications Administered Current Inpatient Medications Acetaminophen (Acetaminophen 325 Mg Tab) 650 mg PO Q4H PRN PRN Reason: mild pain/fever Stop: 04/10/25 18:18 Last Admin: 03/12/25 05:32 Dose: 650 mg Heparin Sodium (Porcine) (Heparin Sod 5,000 Unit/0.5 Ml Vial) 7,500 units SQ Q12 [facility] Stop: 04/10/25 20:59 Last Admin: 03/16/25 08:07 Dose: 7,500 units Vancomycin HCl 2,000 mg/ (Sodium Chloride) 540 mls @ 200 mls/hr IV Q12H [facility] Stop: 03/20/25 19:59 Last Infusion: 03/16/25 11:19 Dose: Infused Piperacillin Sod/Tazobactam Sod (Zosyn) 4.5 gm in 100 mls @ 25 mls/hr IV Q8H [facility]; Protocol Stop: 03/22/25 14:59 Last Infusion: 03/16/25 11:18 Dose: Infused Lactobacillus Acidophilus (Advanced Probiotic 625 Mg Capsule) 1,250 mg PO DAILY ST[facility]E Stop: 04/10/25 18:18 Last Admin: 03/16/25 08:06 Dose: 1,250 mg Miscellaneous Information (Vancomycin Consult Active) 1 each N/A UD PRN PRN Reason: Consult Stop: 04/10/25 12:18 Ondansetron HCl (Ondansetron Inj 2 Mg/Ml 2 Ml Vial) 4 mg IV Q6H PRN PRN Reason: Nausea Stop: 04/10/25 18:18 Oxycodone HCl (Oxycodone Hcl Ir 5 Mg Tab (Immediate Release)) 5 mg PO Q6H PRN PRN Reason: Mod-Sev Pain (Scale 4-10) Stop: 03/26/25 07:51 Last Admin: 03/12/25 08:14 Dose: 5 mg (2) Laceration of right lower leg Encounter type: initial encounter Qualified Code(s): S81.811A - Laceration without foreign body, right lower leg, initial encounter
[2025-03-17 07:02] LABS: Hematocrit (blood only) 39.5 % (42.0-52.0); Hemoglobin 13.2 g/dl (14.0-18.0); Immature Granulocytes # (auto) 0.03 K/uL (0.01-0.20); Immature Granulocytes % (auto) 0.4 %; Mean Corpuscular Hemoglobin 28.6 pg (25.0-34.0); Mean Corpuscular Volume 85.5 fL (80.0-100.0); Platelet Count 300 K/uL (130-400); RDW Standard Deviation 40.2 fL (36.4-46.3); Red Blood Count 4.62 M/uL (4.70-6.10); White Blood Count 7.33 K/ul (4.8-10.8)
[2025-03-17 07:33] LABS: Anion Gap 5.0 (3-11); Blood Urea Nitrogen 15.0 mg/dl (6-23); Calcium 9.0 mg/dl (8.6-10.3); Carbon Dioxide 31.0 mmol/L (21-32); Chloride 103.0 mmol/L (98-107); Creatinine Clr Calc Pharmacy 189.0 ml/min; Glucose 99.0 mg/dl (70-99(Fasting)); Potassium 3.8 mmol/L (3.5-5.1); Sodium 139.0 mmol/L (136-145)
[2025-03-17] MEDS: FUROSEMIDE 40 MG/4 ML VIAL IV ONE (13:14)
--- NOTE | 2025-03-17 14:46 | Ultrasound Report ---
ULTRASOUND RIGHT LOWER EXTREMITY ARTERIAL CLINICAL HISTORY: Right leg swelling. Cellulitis. COMPARISON STUDY: CT scan of the right tibia and fibula dated 03/15/2025. TECHNIQUE: Real-time grayscale and color Doppler and spectral Doppler sonography of the arteries of t he right lower extremity is performed from the inguinal crease to the foot. FINDINGS: No significant atherosclerotic plaque is identified. There are triphasic waveforms in the c ommon femoral artery with velocities measuring up to 139 cm/s. The profunda femoris artery is patent with velocities measuring up to 55 cm/s. There are triphasic waveforms throughout the superficial fem oral and popliteal arteries. Velocities in the superficial femoral artery measure up to 109 cm/s, and velocities in the popliteal artery measure up to 66 cm/s. There is three-vessel runoff to the foot. Velocities within the calf arteries measure up to 95 cm/s. The dorsalis pedis artery is patent with v elocities measuring up to 35 cm/s. IMPRESSION: There is no sonographic evidence of high-grade stenosis or focal vessel cut off throughou t the arteries of the right lower extremity. Dictated: 03/17/2025 11:37 AM Transcribed: 03/17/2025 2:36 PM Lm [id number] [email or web address] [id number] Electronically signed by: Ang Briceño M.D. 03/17/2025 2:44 PM
--- NOTE | 2025-03-17 16:09 | Hospitalist Progress Note ---
Date of Service March 17, 2025 Assessment & Plan (1) Cellulitis: Plan: 34 year old male with PMH significant for history of lumbar spine surgery who presented to the ED on 03/11/2025 with an infected leg laceration and is admitted for cellulitis. Right lower extremity cellulitis Sustained laceration of right lower leg 5 days ago requiring sutures Failed outpatient therapy consisting of keflex x2 days and bactrim x3 days --Leg CT:Subcutaneous edema that could be due to cellulitis. No definite abscess or osteomyelitis. Right knee osteoarthritis. Lateral tilting and lateral subluxation of the patella, which may be due to patellar tracking abnormality. Small calcaneal spur --Venous Doppler:No evidence of right leg deep venous thrombosis. Right inguinal adenopathy, nonspecific in nature -- Blood cultures negative to date --Wound culture negative to date -- Empirically on vancomycin, cefepime>> Vanco, Zosyn --Appreciate orthopedics input: No indication for intervention currently per Ortho --Right lower extremity weightbearing as tolerated --Received IV fluids --Continue wound care clinically little better with decreasing redness and minimal to no drainage from the suture area Advised to keep the right lower extremity elevated Awaiting wound care nurse recommendation Will give a small dose of Lasix for more diuresis Likely to discharge tomorrow on oral Augmentin Right leg swelling and redness have improved Will give additional dose of Lasix 40 mg IV and monitor for electrolytes and the wound tomorrow Likely discharge tomorrow on oral antibiotic (2) Laceration of right lower leg: Plan Other significant medical conditions are as below As aboveMorbid obesity BMI 55 Recommend lifestyle changes DVT Px: SQ Heparin CODE STATUS Full code Disposition Expect to discharge home in stable Admission and Anticipated Discharge Date Admission Date: March 12, 2025 Subjective 03/16/2025 The patient was seen and examined in medical floor He has been feeling much better today His right leg is less swollen and the redness has improved Denies any fever and chills 03/17/2025 Patient was seen and examined in the presence of the mother He has been feeling much better and the leg looks better well with decreasing redness and swelling No fever no chills Review of Systems Review of Systems: All systems reviewed and are unremarkable except as noted below Physical Exam Physical Exam: Lying in bed without any acute distress Constitutional: well developed, well nourished and + obese; not ill appearing Eyes: PERRL, conjunctivae normal, anicteric sclerae ENMT: external ear and nose normal, oropharynx normal Neck: trachea midline, no thyromegaly Respiratory: no respiratory distress Auscultation: lungs clear to auscultation bilaterally Cardiovascular: Rate/Rhythm: regular rate and regular rhythm; not tachycardic Heart Sounds: normal S1 and normal S2; no murmur Extremities: + edema ( trace edema bilaterally more on the right than the left) Gastrointestinal (Abdomen): Inspection/Auscultation: normal bowel sounds; abdomen not distended Percussion/Palpation: abdomen soft; abdomen nontender Skin: Minimal redness involving the right lower leg adjoining the site of sutures Neurologic: normal touch/pain/proprioception and moves all extremities; no focal motor deficits Psychiatric: A+Ox3, euthymic affect Lymphatic: no cervical or axillary lymphadenopathy Results & Data Results & Data Vital Signs (Past 12 Hours) Vital Signs Temp Pulse Resp BP Pulse Ox O2 Del Method 03/17/25 15:50 36.5 C 82 19 107/70 96 Room Air 03/17/25 07:04 36.6 C 67 18 109/62 96 Room Air Laboratory Results Short CBC 03/17/25 Range/Units 06:29 WBC 7.33 (4.8-10.8) K/ul Hgb 13.2 L (14.0-18.0) g/dl Hct 39.5 L (42.0-52.0) % Plt Count 300 (130-400) K/uL BMP 03/17/25 06:29 Sodium 139 Potassium 3.8 Chloride 103 Carbon Dioxide 31 BUN 15 Creatinine 0.91 Glucose 99 Calcium 9.0 Medications Administered Current Inpatient Medications Acetaminophen (Acetaminophen 325 Mg Tab) 650 mg PO Q4H PRN PRN Reason: mild pain/fever Stop: 04/10/25 18:18 Last Admin: 03/12/25 05:32 Dose: 650 mg Heparin Sodium (Porcine) (Heparin Sod 5,000 Unit/0.5 Ml Vial) 7,500 units SQ Q12 [facility] Stop: 04/10/25 20:59 Last Admin: 03/17/25 08:00 Dose: 7,500 units Vancomycin HCl 2,000 mg/ (Sodium Chloride) 540 mls @ 200 mls/hr IV Q12H [facility] Stop: 03/20/25 19:59 Last Infusion: 03/17/25 13:22 Dose: Infused Piperacillin Sod/Tazobactam Sod (Zosyn) 4.5 gm in 100 mls @ 25 mls/hr IV Q8H [facility]; Protocol Stop: 03/22/25 14:59 Last Infusion: 03/17/25 10:19 Dose: Infused Lactobacillus Acidophilus (Advanced Probiotic 625 Mg Capsule) 1,250 mg PO DAILY [facility]EV[facility] Stop: 04/10/25 18:18 Last Admin: 03/17/25 08:00 Dose: 1,250 mg Miscellaneous Information (Vancomycin Consult Active) 1 each N/A UD PRN PRN Reason: Consult Stop: 04/10/25 12:18 Ondansetron HCl (Ondansetron Inj 2 Mg/Ml 2 Ml Vial) 4 mg IV Q6H PRN PRN Reason: Nausea Stop: 04/10/25 18:18 Oxycodone HCl (Oxycodone Hcl Ir 5 Mg Tab (Immediate Release)) 5 mg PO Q6H PRN PRN Reason: Mod-Sev Pain (Scale 4-10) Stop: 03/26/25 07:51 Last Admin: 03/12/25 08:14 Dose: 5 mg (2) Laceration of right lower leg Encounter type: initial encounter Qualified Code(s): S81.811A - Laceration without foreign body, right lower leg, initial encounter
[2025-03-17 19:25] VITALS: O2SAT 94
[2025-03-18 07:36] VITALS: BP 130/71; PULSE 57; RESP 18; TEMP 98
[2025-03-18 08:30] LABS: Anion Gap 7.0 (3-11); Blood Urea Nitrogen 15.0 mg/dl (6-23); Calcium 8.7 mg/dl (8.6-10.3); Carbon Dioxide 28.0 mmol/L (21-32); Chloride 104.0 mmol/L (98-107); Creatinine Clr Calc Pharmacy 191.1 ml/min; Glucose 95.0 mg/dl (70-99(Fasting)); Potassium 3.8 mmol/L (3.5-5.1); Sodium 139.0 mmol/L (136-145)
--- NOTE | 2025-03-18 10:22 | Hospitalist Progress Note ---
Date of Service March 18, 2025 Assessment & Plan (1) Cellulitis: Plan: 34 year old male with PMH significant for history of lumbar spine surgery who presented to the ED on 03/11/2025 with an infected leg laceration and is admitted for cellulitis. Right lower extremity cellulitis Sustained laceration of right lower leg 5 days ago requiring sutures Failed outpatient therapy consisting of keflex x2 days and bactrim x3 days --Leg CT:Subcutaneous edema that could be due to cellulitis. No definite abscess or osteomyelitis. Right knee osteoarthritis. Lateral tilting and lateral subluxation of the patella, which may be due to patellar tracking abnormality. Small calcaneal spur --Venous Doppler:No evidence of right leg deep venous thrombosis. Right inguinal adenopathy, nonspecific in nature -- Blood cultures negative to date --Wound culture negative to date -- Empirically on vancomycin, cefepime>> Vanco, Zosyn --Appreciate orthopedics input: No indication for intervention currently per Ortho --Right lower extremity weightbearing as tolerated --Received IV fluids --Continue wound care clinically little better with decreasing redness and minimal to no drainage from the suture area Advised to keep the right lower extremity elevated Awaiting wound care nurse recommendation Will give a small dose of Lasix for more diuresis Likely to discharge tomorrow on oral Augmentin Right leg swelling and redness have improved Will give additional dose of Lasix 40 mg IV and monitor for electrolytes and the wound tomorrow Right leg swelling and redness have improved a lot and without any significant pain He has had enough diuresis and the electrolytes remain normal --He will be discharged home this afternoon on Augmentin for 5 more days (2) Laceration of right lower leg: Plan: He was advised to give appointment with the primary care doctor for stitch removal on Saturday Plan Other significant medical conditions are as below As aboveMorbid obesity BMI 55 Recommend lifestyle changes DVT Px: SQ Heparin CODE STATUS Full code Disposition Will be discharged home this afternoon Admission and Anticipated Discharge Date Admission Date: March 12, 2025 Subjective 03/16/2025 The patient was seen and examined in medical floor He has been feeling much better today His right leg is less swollen and the redness has improved Denies any fever and chills 03/17/2025 Patient was seen and examined in the presence of the mother He has been feeling much better and the leg looks better well with decreasing redness and swelling No fever no chills 03/18/2025 The patient was seen and examined in medical floor He remains stable does not have any complaints His right leg swelling and redness involving the wound area have improved a lot He will be discharged home this afternoon Review of Systems Review of Systems: All systems reviewed and are unremarkable except as noted below Physical Exam Physical Exam: Lying in bed without any acute distress Constitutional: well developed, well nourished and + obese; not ill appearing Eyes: PERRL, conjunctivae normal, anicteric sclerae ENMT: external ear and nose normal, oropharynx normal Neck: trachea midline, no thyromegaly Respiratory: no respiratory distress Auscultation: lungs clear to auscultation bilaterally Cardiovascular: Rate/Rhythm: regular rate and regular rhythm; not tachycardic Heart Sounds: normal S1 and normal S2; no murmur Extremities: + edema ( trace edema bilaterally more on the right than the left) Gastrointestinal (Abdomen): Inspection/Auscultation: normal bowel sounds; abdomen not distended Percussion/Palpation: abdomen soft; abdomen nontender Skin: Much improvement of the redness and swelling involving the right lower leg Neurologic: normal touch/pain/proprioception and moves all extremities; no focal motor deficits Psychiatric: A+Ox3, euthymic affect Lymphatic: no cervical or axillary lymphadenopathy Results & Data Results & Data Vital Signs (Past 12 Hours) Vital Signs Temp Pulse Resp BP Pulse Ox O2 Del Method 03/18/25 07:41 Room Air 03/18/25 07:35 36.7 C 57 L 18 130/71 94 Room Air Laboratory Results [facility] 03/18/25 07:22 Sodium 139 Potassium 3.8 Chloride 104 Carbon Dioxide 28 BUN 15 Creatinine 0.90 Glucose 95 Calcium 8.7 Medications Administered Current Inpatient Medications Acetaminophen (Acetaminophen 325 Mg Tab) 650 mg PO Q4H PRN PRN Reason: mild pain/fever Stop: 04/10/25 18:18 Last Admin: 03/12/25 05:32 Dose: 650 mg Amoxicillin/Clavulanate Potassium (Amoxicillin/Clavulanate 875 Mg Tab) 1 tab PO BIDM [facility]; Protocol Stop: 03/25/25 16:59 Heparin Sodium (Porcine) (Heparin Sod 5,000 Unit/0.5 Ml Vial) 7,500 units SQ Q12 [facility] Stop: 04/10/25 20:59 Last Admin: 03/18/25 08:47 Dose: 7,500 units Lactobacillus Acidophilus (Advanced Probiotic 625 Mg Capsule) 1,250 mg PO DAILY STEVE Stop: 04/10/25 18:18 Last Admin: 03/18/25 08:47 Dose: 1,250 mg Miscellaneous Information (Vancomycin Consult Active) 1 each N/A UD PRN PRN Reason: Consult Stop: 04/10/25 12:18 Ondansetron HCl (Ondansetron Inj 2 Mg/Ml 2 Ml Vial) 4 mg IV Q6H PRN PRN Reason: Nausea Stop: 04/10/25 18:18 Oxycodone HCl (Oxycodone Hcl Ir 5 Mg Tab (Immediate Release)) 5 mg PO Q6H PRN PRN Reason: Mod-Sev Pain (Scale 4-10) Stop: 03/26/25 07:51 Last Admin: 03/12/25 08:14 Dose: 5 mg (2) Laceration of right lower leg Encounter type: initial encounter Qualified Code(s): S81.811A - Laceration without foreign body, right lower leg, initial encounter
[2025-03-18] MEDS: AMOXICILLIN/CLAVULANATE 875 MG TAB PO ONE (11:13)
[2025-03-18] MEDS ORDERED: AMOXICILLIN/CLAVULANATE 875 MG TAB PO SCH (17:00)
--- NOTE | 2025-03-18 17:03 | Discharge Summary ---
Date of Service March 18, 2025 Admission HPI Per Admitting Provider 34 year old male with PMH significant for history of lumbar spine surgery who presented to the ED on 03/11/2025 with an infected leg laceration. Last Saturday, he had a tractor accident and sustained a deep cut on his right abdullahi. He was seen at [facility] and got ten stitches inside and twenty outside. He received a tetanus shot and was prescribed keflex. He developed swelling, redness, and warmth and presented to his PCP on Saturday who prescribed bactrim. He has been taking bactrim twice a day with no improvement and notes that the redness and swelling has been getting worse. He called his PCP today who advised that he come to the ED. He reports a low grade fever of 99.5 last night but denies chills, chest pain, SOB, abdominal pain, N/V. Notes some diarrhea since starting the bactrim. He has been able to walk but notes discomfort when walking. He has been elevating his leg after work each night. He has been applying neosporin and a dressing for wound care. Admission Exam Per Admitting Provider Physical Exam: General/Psych: WD/WN, sitting up in bed, NAD, conversing easily, euthymic affect Head: normocephalic, atraumatic Eyes: normal inspection, PERRL, conjunctivae pink ENT: external ear and nose normal, oropharynx normal Neck: normal visual inspection, trachea midline Respiratory: normal respiratory effort, lungs clear to auscultation, no wheeze/rales/rhonchi, no accessory muscle use Cardiovascular: regular rate and rhythm, no murmur/rub/gallop, no JVD Extremities: no cyanosis or clubbing, normal peripheral pulses, right lower leg warm and edematous without fluctuance Abdomen/GI: normal bowel sounds, soft, nontender, no hepatosplenomegaly Neurologic/MSK: A+Ox3, motor strength 5/5, moves all extremities Skin: no rashes, normal color, warm and dry, right abdullahi laceration with sutures and scant amount of serous drainage with surrounding erythema Principal Diagnosis Right leg cellulitis, laceration status post stitches Discharge Exam Lying in bed without any acute distress Constitutional well developed, well nourished and + obese; not ill appearing Eyes PERRL, conjunctivae normal, anicteric sclerae ENMT external ear and nose normal, oropharynx normal Neck trachea midline, no thyromegaly Respiratory no respiratory distress Auscultation: lungs clear to auscultation bilaterally Cardiovascular Rate/Rhythm: regular rate and regular rhythm; not tachycardic Heart Sounds: normal S1 and normal S2; no murmur Extremities: + edema ( trace edema bilaterally more on the right than the left) Gastrointestinal (Abdomen) Inspection/Auscultation: normal bowel sounds; abdomen not distended Percussion/Palpation: abdomen soft; abdomen nontender Neurologic normal touch/pain/proprioception and moves all extremities; no focal motor deficits Psychiatric A+Ox3, euthymic affect Lymphatic no cervical or axillary lymphadenopathy Discharge Data Allergies Allergy/AdvReac Type Severity Reaction Status Date / Time No Known Allergies Allergy Unknown Unverified 03/11/25 15:26 Consultations 03/11/25 16:12 ED Decision to Admit Stat 03/11/25 16:17 Consult Orthopedic Surgery Routine Ordered Studies 03/11/25 15:52 CT leg [CT tib/fib RT wo con] Urgent US venous doppler LE RT Urgent 03/15/25 10:09 CT leg [CT tib/fib RT w con] Urgent 03/17/25 09:02 US arterial duplex LE RT Routine Hospital Course (1) Cellulitis: 34 year old male with PMH significant for history of lumbar spine surgery who presented to the ED on 03/11/2025 with an infected leg laceration and is admitted for cellulitis. Right lower extremity cellulitis Sustained laceration of right lower leg 5 days ago requiring sutures Failed outpatient therapy consisting of keflex x2 days and bactrim x3 days --Leg CT:Subcutaneous edema that could be due to cellulitis. No definite abscess or osteomyelitis. Right knee osteoarthritis. Lateral tilting and lateral subluxation of the patella, which may be due to patellar tracking abnormality. Small calcaneal spur --Venous Doppler:No evidence of right leg deep venous thrombosis. Right inguinal adenopathy, nonspecific in nature -- Blood cultures negative to date --Wound culture negative to date -- Empirically on vancomycin, cefepime>> Vanco, Zosyn --Appreciate orthopedics input: No indication for intervention currently per Ortho --Right lower extremity weightbearing as tolerated --Received IV fluids --Continue wound care clinically little better with decreasing redness and minimal to no drainage from the suture area Advised to keep the right lower extremity elevated Awaiting wound care nurse recommendation Will give a small dose of Lasix for more diuresis Likely to discharge tomorrow on oral Augmentin Right leg swelling and redness have improved Will give additional dose of Lasix 40 mg IV and monitor for electrolytes and the wound tomorrow Right leg swelling and redness have improved a lot and without any significant pain He has had enough diuresis and the electrolytes remain normal --He will be discharged home this afternoon on Augmentin for 5 more days (2) Laceration of right lower leg: He was advised to give appointment with the primary care doctor for stitch removal on Saturday Plan Other significant medical conditions are as below As aboveMorbid obesity BMI 55 Recommend lifestyle changes DVT Px: SQ Heparin CODE STATUS Full code Disposition Will be discharged home this afternoon Total Time Total Time Spent Total Time Spent (In Minutes): 35 Minutes Discharge Plan Discharge Items Patient Disposition: Home - Self-Care Reason For Visit: LEG INFECTION Discharge Diagnosis: Right leg cellulitis, laceration status post stitches Condition on Discharge: Good Activity: Resume your previous activity Non-emergency contact: Primary Care Provider Call non-emergency contact if: you have any medication questions and your symptoms worsen Follow-up/Referrals: Luna Ames MD [Primary Care Provider] - 03/22/25 8:20 am (Date & Time 03/22/2025 8:20 AM Provider: Armen Garcia MD [facility] ) Diet: Regular Addtl Attending Provider Instructions: Please take precautions to avoid fall Try to do dressing of the wound as advised Finish the course of antibiotic and take probiotics with it Keep your legs elevated while sleeping over the pillow Please give appointment with your healthcare providers-likely stitch removal on Saturday Pending Studies at Discharge: No Stand-Alone Forms: My [employer], Smoking Cessation Medications and DC Order Prescriptions: New amoxicillin-pot clavulanate 875-125 mg Tablet 1 tab PO BIDM Qty: 10 0RF Advanced Probiotic 625 mg (10 billion cell) Capsule 1 cap PO DAILY Qty: 14 0RF Discontinued sulfamethoxazole-trimethoprim 800-160 mg tablet 1 tab PO BID Discharge Orders: Discharge Order (Routine); Ordered 03/18/25 Ordered By: Dawit Carreno/Other Patient Handouts: Cellulitis Dc Admission Data Admit Date/Time: 03/12/25 12:11 Attending Provider: Dawit Doshi Admit Provider: Laron Huang Primary Care Provider: Luna Ames Other Providers: Thalia Nunn; Semaj Daniel; Rojelio Avendano Other Interventions: Discharge Summary Assessment (RN) Last Done: 03/18/25 11:26
== END 2025-03-18 11:58 | disposition home or self-care (01) | DRG 603 ==
LOC: 3W 11:34 → ED 11:34 → SUATTDRO 15:55 → 3W 18:03 → SUATTDRO 03-12 12:11